=== PATIENT | female | born 1930 | race African-American/Black ===

== ENCOUNTER 2020-04-05 18:04 | Inpatient (IN) | payer OTHER ==
[~2020-04-05] VITALS: Ht 160 cm; Wt 51.9 kg
--- NOTE | ~2020-04-05 | HC ---
[facility] [place] [address] [place] [address] CONSULTATION Name: BON CAMACHO Room #: 218-P [facility] IN M.R.#: [id number] Admission: 04/05/20 Attend Phys: Tasneem Fuentes MD Discharge: Date of : [birth year] Report #: [id number] THIS REPORT FOR: cc: Clarisa Marin MD, Paula V. MD Al-Shazia,Nette Torres MD ~ REASON FOR CONSULTATION: Hyponatremia. REASON FOR PRESENTATION: Sent from her facility for a concerning metastatic lesions on her MRI. HISTORY OF PRESENT ILLNESS: An 89-year-old who presented from her primary care physician after an MRI was done on her. She reported to her physicians that she has been having lower extremity weakness and numbness. MRI was very concerning. The patient was sent for further evaluation where she was found to have hyponatremia with a sodium of 114. It does look like that the patient has history of hypertension and is maintained on hydrochlorothiazide. She also reports of poor oral intake. The patient was initiated on IV fluid with some improvement on her sodium values. Sodium is up to 123 as of this morning. She did not have any symptoms other than mild weakness. She also reported some diarrhea. PAST MEDICAL HISTORY: Hypertension. MEDICATIONS: 1. Lisinopril. 2. Hydrochlorothiazide/triamterene. FAMILY HISTORY: Hypertension. ALLERGIES: None. REVIEW OF SYSTEMS: GENERAL: No fever or chills, but significant for weakness. CARDIOVASCULAR: No chest pain or palpitation. PULMONARY: No cough or hemoptysis. GASTROINTESTINAL: No nausea or vomiting, but significant for diarrhea and poor appetite. NEUROLOGICAL: As per the history of present illness. PHYSICAL EXAMINATION: GENERAL: She is awake, alert, oriented. Blood pressure is 126/65, temperature 36.4, pulse rate 72, respiratory rate 16. HEAD AND NECK: No jugular venous distention. CHEST: No crackles. CARDIOVASCULAR: No rub detected. [facility] [address] [place] [address] CONSULTATION Name: BON CAMACHO Zulema Room #: 218-P [facility] IN [facility]#: [id number] Admission: 04/05/20 Attend Phys: Tasneem Fuentes MD Discharge: Date of : [birth year] Report #: [id number] ABDOMEN: Soft, nontender. LOWER EXTREMITIES: There is no edema. LABORATORY DATA: From today, sodium is 123, potassium is 3.7, chloride is 89, BUN is 12, creatinine 0.7. ASSESSMENT AND PLAN: 1. Hyponatremia due to thiazide diuretics and poor oral intake of solutes. 2. Sodium is up to 123. 3. Metastatic workup has been initiated. 4. Initiate on salt tablet. 5. Fluid restriction. 6. No more thiazide diuretics. 7. No NSAIDs. 8. The patient's sodium should rectify in the next 24 hours. No further renal recommendation. By: 0700 0725 Nette Clay MD /nt
[2020-04-05 18:07] VITALS: BP 126/69
[2020-04-05] MEDS ORDERED: ZESTRIL40 MG PO (18:46)
[2020-04-05] MEDS ORDERED: HYDROCODON-ACE1 EAC7 PO (18:47)
[2020-04-05] MEDS ORDERED: TRIAMTERENE/HCT1 CA1 PO (18:47)
[2020-04-05] MEDS ORDERED: TIZANIDINE HCL4 M1 PO (18:48)
[2020-04-05] MEDS ORDERED: TIMOLOL MALEATE5 M2 OPHTHALMIC (18:49)
[2020-04-05] MEDS ORDERED: XALATAN2.5 ML OPHTHALMIC (18:50)
[2020-04-05 19:11] LABS: EOSINOPHILS 0.1 % (0.0-3.0)
[2020-04-05 19:12] LABS: ABSOLUTE NEUTROPHILS 12.7 thou/uL (1.4-8.2); BASOPHILS 0.4 % (0.0-2.0); HEMATOCRIT 44.7 % (37.0-47.0); HEMOGLOBIN 15.2 gm/dL (12.0-15.0); LYMPHOCYTES 7.5 % (24.0-44.0); MCH 32.6 pg (26.0-34.0); MCV 95.7 fL (80.0-100.0); MONOCYTES 8.7 % (1.0-8.0); PLATELET COUNT 519 thou/uL (150-400); POLYS 83.3 % (36.0-66.0); RBC 4.67 mil/uL (4.20-5.00); RDW 13.6 % (10.5-14.5); WBC 15.3 thou/uL (4.0-11.0)
[2020-04-05 19:24] LABS: ALBUMIN 3.6 g/dL (3.4-5.0); CALCIUM 9.5 mg/dL (8.5-10.1); POTASSIUM 4.4 mmol/L (3.5-5.1); TOTAL BILIRUBIN 0.8 mg/dL (0.2-1.0); TOTAL PROTEIN 7.6 g/dL (6.4-8.2)
[2020-04-05 20:07] LABS: URINE BILIRUBIN NEGATIVE (Negative); URINE BLOOD NEGATIVE (Negative); URINE CLARITY CLEAR; URINE COLOR YELLOW; URINE GLUCOSE-RANDOM* NEGATIVE (Negative); URINE KETONES NEGATIVE (Negative); URINE LEUKOCYTES-REFLEX NEGATIVE (Negative); URINE NITRITE-REFLEX NEGATIVE (Negative); URINE PROTEIN (DIPSTICK) NEGATIVE (Negative); URINE UROBILINOGEN 0.2 E.U./dl (0.2-1.0)
[2020-04-06] VITALS (7 sets, daily range): BP systolic 101–137; BP diastolic 62–71
[2020-04-06 01:30] LABS: CALCIUM 9.2 mg/dL (8.5-10.1); CREATININE 0.8 mg/dL (0.6-1.0); POTASSIUM 3.8 mmol/L (3.5-5.1)
[2020-04-06 05:12] LABS: HEMATOCRIT 41.6 % (37.0-47.0); HEMOGLOBIN 13.9 gm/dL (12.0-15.0); MCHC 33.3 g/dL (28.0-37.0); RBC 4.34 mil/uL (4.20-5.00); RDW 13.4 % (10.5-14.5); WBC 14.7 thou/uL (4.0-11.0)
[2020-04-06 05:22] LABS: CALCIUM 9.4 mg/dL (8.5-10.1); CREATININE 0.8 mg/dL (0.6-1.0); POTASSIUM 3.9 mmol/L (3.5-5.1)
--- NOTE | 2020-04-06 07:20 | EKG ---
[address] [place] [address] ELECTROCARDIOGRAM REPORT Name: BON CAMACHO Room #: 170-7 ADM IN M.R.#: [id number] Admission: 04/05/20 Attend Phys: Jossue Gonzalez MD Discharge: Date of : [birth year] Report #: [id number] [facility] ED Test Date: 2020-04-05 Test Time: 18:39:06 Pat Name: BON CAMACHO Department: Room: 170 Gender: F Booking Agent: cu : [id number] Requested By: Skip Schroeder Order Number: [id number] MD: Carl Abraham Measurements Intervals Hobbs Rate: 69 P: -7 OK: 162 QRS: -19 QRSD: 112 T: 0 QT: 374 QTc: 401 Interpretive Statements Sinus rhythm Probable left ventricular hypertrophy Inferior infarct, old Anterior Q waves, possibly due to LVH Compared to ECG 09/29/1990 13:18:00 Myocardial infarct finding now present Left ventricular hypertrophy now present Q waves now present Sinus bradycardia no longer present Electronically Signed On 04-06-2020 7:19:52 TELEVISION CABINET FINISHER by Carl Abraham [email or web address] <ELECTRONICALLY SIGNED> By: Carl Abraham MD, FAC 04/06/20 0719 [id number] Carl Abraham MD, [facility] /EPI
--- NOTE | 2020-04-06 15:30 | NUR ---
RECEIVED PT FROM ER AT 1420. PT STATES SHE HAS SEVERE PAIN WITH MOVEMENT. ASSESSMENT PERFORMED. PT STATES HER GOAL PAIN LEVEL IS 2 AND AFTER MOVEMENT, PT DENIES PAIN. PT A&OX4. PTS DAUGHTER AT BEDSIDE. VSS. WILL CONTINUE TO MONITOR.
[2020-04-07] VITALS: BP 123/73
[2020-04-07 05:11] LABS: ALBUMIN 3.1 g/dL (3.4-5.0); CALCIUM 9.2 mg/dL (8.5-10.1); CREATININE 0.7 mg/dL (0.6-1.0); PHOSPHORUS 2.6 mg/dL (2.5-4.9); POTASSIUM 3.7 mmol/L (3.5-5.1)
[2020-04-07 06:08] VITALS: BP 126/65
--- NOTE | 2020-04-07 06:37 | NUR ---
SLEPT MOST OF SHIFT PAST 2400. REMAINS ORIENTED TO SELF AND TIME. REPOSITIONED EVERY 2 HOURS FOR COMFORT AND SKIN CARES. NOTED WOUND TO RIGHT AND LEFT BACK, AND RIGHT AND LEFT BUTTOCK. NOT PROGRESSING TOWARDS DISCHARGE GOALS. COMPLAINTS OF PAIN WITH MOVEMENT BUT FALLS TO SLEEP WHEN DONE POSITIONING. REORIENT NEEDED. PAIN MEDICATIONS GIVEN NEEDED. WORKING ON GOALS AND PLAN OF CARE FOR NOC. CONTINUE TO ASSES CLOSELY
[2020-04-07 07:10] VITALS: BP 118/50
--- NOTE | 2020-04-07 07:24 | HC ---
[facility] [address] [place] [address] CONSULTATION Name: BON CAMACHO Room #: 218-P [facility] IN M.R.#: [id number] Admission: 04/05/20 Attend Phys: Tasneem Fuentes MD Discharge: Date of : [birth year] Report #: [id number] THIS REPORT FOR: cc: Clarisa Marin MD,Danis Colon MD, MD ~ PRIMARY CARE PHYSICIAN: Dr. Clarisa Marin REASON FOR CONSULTATION: Reported abnormal MRI of the spine, back pain, hyponatremia. HISTORY OF PRESENT ILLNESS: The patient is a very pleasant 89-year-old female who lives in [facility] who has got about a 2-3 week history of back pain, may be 1-week history of left leg weakness and numbness and pain radiating down her leg. The patient denies headache, vision troubles, swallowing difficulties, mouth sores, nausea, vomiting. Does report some watery stool, almost diarrhea, the feces is dark. She also reports of sweet tea. She has lost about 5-12 pounds. No fever. No ankle swelling. Does report numbness around the mid thigh on the left down to her distal toes. In the ER, her sodium was 114. Rest of labs are fairly unremarkable. PAST MEDICAL HISTORY: Notable for, I guess, hypertension and osteoarthritis. She is not the best historian. MEDICATIONS: At this time currently include half normal saline, Tylenol p.r.n., MiraLax p.r.n., Zofran p.r.n., and morphine p.r.n. PHYSICAL EXAMINATION: GENERAL: The patient appears her stated age. She is lying in the ER admit room. VITAL SIGNS: Height is reported as 5 feet 3 inches, 160 cm, weight 120 pounds or 54.4 kilograms. Blood pressure 100/56, O2 sat of 96%, respirations 15, pulse 69, afebrile at 98. MOOD: She is pleasant and alert, conversant. NEUROLOGIC: Face is symmetric. Speech and thought pattern fairly normal, though slightly slow, has decreased sensation or awareness on her left leg from about the thigh down. She could push down fairly well with her toes. Defer remainder neuro exam to others. LYMPHATICS: No enlarged lymph nodes in the supraclavicular or cervical region. ABDOMEN: Fairly scaphoid. No obvious masses. EXTREMITIES: Without clubbing, cyanosis or edema. LABORATORY DATA: Here has sodium currently 121, BUN 20, creatinine 0.9, alkaline phosphatase 129. Total protein 7.6, albumin 3.6. LDH slightly [address] [address] CONSULTATION Name: JANICEBON Poole Room #: 218-P ADM IN M.R.#: [id number] Admission: 04/05/20 Attend Phys: Tasneem Fuentes MD Discharge: Date of : [birth year] Report #: [id number] elevated at 266. Transaminases normal. I ordered serum protein electrophoresis pending. White count 14.7; hemoglobin 13.9; platelets 494, down from 519. Differential mostly normal. TSH 0.59. Coronavirus negative. Vitamin D pending. UA fairly unremarkable. ASSESSMENT AND PLAN: 1. Reportedly, abnormal MRI, worse from metastatic disease. We will arrange for CAT scan chest, abdomen and pelvis to look for possible primary. We will also check serum protein electrophoresis looking for paraprotein. 2. Leg weakness and pain. Neurosurgery to see the patient also receiving p.r.n. pain meds. 3. Hypertension, meds per others. 4. Hyponatremia. Renal to see ____ receiving cautious rehydration. Sodium has improved. We will follow with you. <ELECTRONICALLY SIGNED> By: Danis Will MD 04/07/20 0724 [id number] [id number] Danis Will MD /nt
[2020-04-07 09:08] LABS: INR 1.1; PROTIME 10.6 Seconds (9.3-11.4)
--- NOTE | 2020-04-07 10:37 | NUR ---
WOUND CARE CONSULT; ASSESSED BUTTOCKS AREA AND L MID BACK WOUND W/ LOIS POWER LINE LINEMAN NURSE, PT ALERT, COOPERATIVE BUT C/O PAIN WHEN TURNING, BILAT BUTTOCKS AREA EXCORIATED, CAUSE PROBABLE SHEARING, MARIA C, NO S/S INFECTION, AREA ~4CM X3CM, WOUND UPPER L MID BACK, 1CM X1CM X .2CM, PINK, NO S/S INFECTION, APPEARS SHEARING INJURY RECOMMENDATIONS; ZGUARD TO BUTTOCKS AREA BID AND PRN, BORDER FOAM TO L MID BACK WOUND CHANGE 3X WEEK, M/W/F AND PRN, LOW AIR PUMP TO BED LAND LEASES AND RENTALS MANAGER AWARE
[2020-04-07 17:00] VITALS: BP 120/78
[2020-04-07 20:28] VITALS: BP 130/83
--- NOTE | 2020-04-08 05:06 | NUR ---
PT IS ALERT AND ORIENTED X2. WITH SOME CONFUSION AT TIMES. REORIENTATION GIVEN TO PT NEEDED. ON ROOM AIR LUNGS ARE CLEAR .PT HAS A OWENS CATH PRESENT. ABDOMEN IS FLAT BOWEL SOUNDS ACTIVE. WILL ADRESS WOUNDS WITH Z GAURD INDICATED. WANTED THE BEDPAN BUT NO BOWEL MOVEMENT NOTED. WILL CONTINUE TO MONITOR AND ASSESS PER NURSING.
[2020-04-08 05:19] VITALS: BP 113/75
--- NOTE | 2020-04-08 09:56 | NUR ---
Met with patient who admits with back pain. Patient resides at home with son. All needs on one level. Patient reports prior to her pain she was independent. She reports pain in left side. she went to PCP Dr Slade/[facility]. subsequently admitted from PCP office. Patient reports pain so terrible she could not turn in her bed, her son helped her. Dtr obtained wc, walker for patient. Patient has 6 supportive children. She reports dtr her designated visitor. Patient with no hx of skilled/rehab or HH. casemgt following for dc needs.
[2020-04-08 11:20] VITALS: BP 107/72
--- NOTE | 2020-04-08 14:41 | NUR ---
PT IS CONFUSED AT BASELINE. DAUGHTER AT BEDSIDE. BBB ON [place] KNITTER. MRI TODAY. POSSIBLE CT TODAY/TOMORROW. WOUNDS WERE VISUALIZED AND CLEANED/DRESSED ACCORDING TO WOUND CARE ORDERS. PT AFEBRILE, OLIGUREA(PROVIDER AWARE), POOR APPETITE, NO BM. PT AND FAMILY HAVE BEEN UPDATED AND EDUCATED ON PT CONDITION AND POC. PT SLOWLY PROGRESSING TOWARDS POC.
--- NOTE | 2020-04-08 15:45 | NUR ---
REHAB CONSULT COMPLETED BY DOREEN SNEED (PT SKILLED WITH DR. SUH). NO THERAPY NOTES IN OF THIS TIME. WILL FOLLOW AND REVIEW THERAPY NOTES TO DETERMINE PATIENT'S REHAB NEEDS WHEN THEY ARE AVAILABLE. THANK YOU FOR THIS REFERRAL.
[2020-04-08 17:00] VITALS: BP 128/58
[2020-04-08 20:30] VITALS: BP 125/86
[2020-04-08 20:33] LABS: M-SPIKE Not Observed g/dL (Not Observed)
[2020-04-09 04:45] VITALS: BP 122/83
[2020-04-09 07:43] VITALS: BP 139/86
[2020-04-09 11:56] VITALS: BP 109/73
[2020-04-09 15:38] VITALS: BP 144/95
--- NOTE | 2020-04-09 16:36 | NUR ---
5N/PT/OT evals in progress today but limited due to pt's poor pain control. Therapy will reattempt to work with the pt tomorrow to make recommendations for HH/SNF/Rehab. 5N will reassess on Sunday. Bone bx results pending. Nursing notes new orders for pain patch and oral meds to try and get better pain control as this will help determine dc recommendations. Will follow.
--- NOTE | 2020-04-09 17:44 | NUR ---
ASSUMED CARE SHIFT CHANGE. ASSESSMENTS CHARTED.MEDS GIVEN. VSS. C/O PAIN MANAGED WITH IV AND PO PAIN MEDS. O2 SATS WNL ROOM AIR. PT UP WITH PHYS THERAPY TOLERATING FAIR. STILL AWAITING BIOPSY RESULTS. DAUGHTER VISITED WITH PT THIS SHIFT. PT CURRENTLY RESTING COMFORTABLY. DENIES NEEDS. CONTINUING POC. WILL PASS ON REPORT TO VASU MACE.
[2020-04-09 20:15] VITALS: BP 126/74; BP 150/67
--- NOTE | 2020-04-09 20:36 | NUR ---
DTR CARITO CALLED. SHE WANTS PATIENT TO HAVE HOSPICE/PALLIATIVE CARE.WILL COMMUNICATE THIS INTENT.
--- NOTE | 2020-04-09 22:17 | NUR ---
ASSESSMENT COMPLETED.PT IS ALERT AND ORIENTED. A LITTLE FORGETFUL. PAIN TO BACK AND LEFT HIP. REPOSITIING GENTLY PROVIDED. OPEN AREA TO BOTTOM, Z GUARD APPLIED. PT HAS A OWENS TO D/D WITH LIGHT YELLOW U/O NOTED.PT HAS SEVERAL SNACKS AND TRIES TO EAT THEM-REPORTS POOR APPETITE SR ON TELEMETRY SHE IS AFEBRILE. APPEARS TO BE IN NO MUCH DISTRESS AT THIS TIME. WILL CONTINUE WITH POC TILL EOS.
[2020-04-10 04:45] VITALS: BP 117/74
[2020-04-10 07:53] VITALS: BP 114/70
[2020-04-10 11:13] VITALS: BP 152/90
--- NOTE | 2020-04-10 12:33 | NUR ---
PT DISCHARGE PLAN HAS CHANGED PT'S DTR (CARITO) SPOKE WITH PHYSICIAN AND NURSE THAT SHE WOULD LIKE TO TAKE HER MOTHER HOME WITH HOSPICE. I SPOKE WITH CARITO AND SHE JUST WANTS THE BEST HOSPICE FOR HER MOTHER. I FAXED RFERRAL TO HOSPICE SPOKE WITH KIRSTEN AND SHE IS GOING TO HAVE RN CALL PT'S DTR AND EVAL PT FOR DC TO HOME TOMORROW SO THEY CAN GET HOSPITAL BED IN PLACE AT HOME. SPOKE WITH DTR AND SHE IS AGREEABLE WITH DC PLAN. AMB FORM FAXED TO UNIT. WILL ARRANGE TRANSPORT TOMORROW ONCE DC ORDERS ARE FINALIZED.
[2020-04-10 12:38] VITALS: BP 152/90
[2020-04-10 13:42] LABS: URINE BILIRUBIN NEGATIVE (Negative); URINE BLOOD 1+ (Negative); URINE CLARITY CLEAR; URINE COLOR YELLOW; URINE GLUCOSE-RANDOM* NEGATIVE (Negative); URINE KETONES TRACE (Negative); URINE LEUKOCYTES 3+ (Negative); URINE NITRITE POSITIVE (Negative); URINE PROTEIN (DIPSTICK) TRACE (Negative); URINE UROBILINOGEN 0.2 E.U./dl (0.2-1.0)
[2020-04-10 13:53] LABS: WBC CLUMPS Moderate (None Seen)
[2020-04-10 13:54] LABS: CASTS None Seen /LPF (None Seen); SQUAMOUS 0-3 Few /LPF (0-3)
[2020-04-10 13:55] LABS: BACTERIA >30 Many /HPF (None Seen); URINE RBC 0-2 Rare /HPF (0-2); URINE WBC >25 Many /HPF (0-5)
[2020-04-10 13:56] LABS: CRYSTALS None Seen /LPF (None Seen); YEAST Present (None Seen)
[2020-04-10 15:28] VITALS: BP 136/70
--- NOTE | 2020-04-10 15:37 | NUR ---
PT ALERT AND ORIENTED WITH FORGETFULNESS. VSS. PRN PAIN MED GIVEN WITH PARTIAL RELIEF. NO CONCERNS AT THIS TIME.
[2020-04-10 19:35] VITALS: BP 145/85
--- NOTE | 2020-04-11 02:34 | NUR ---
SLEEPING WITHOUT PRESENT COMPLAINTS. PATIENT TURNING SELF IN BED. TYLENOL SHCEDULED GIVEN PER ORDERS. REMAINS ORIENTED X4 BUT FORGETFUL AT TIMES. WORKING ON GOALS AND PLAN OF CARE FOR NOC. PROGRESSING TOWARDS DISCHARGE WITH HOSPICE PLANS FOR AM. CONTINUE TO ASSES CLOSELY.
[2020-04-11 04:45] VITALS: BP 137/79
[2020-04-11 07:59] VITALS: BP 134/79
[2020-04-11] MEDS ORDERED: MSL20MG/ML SUBLING (10:08)
[2020-04-11] MEDS ORDERED: TRAMADOL 50 MG50 MG PO (10:27)
[2020-04-11] MEDS ORDERED: HALOPERIDOL2 MG/1 ML PO (10:27)
[2020-04-11] MEDS ORDERED: SODIUM CHLORIDE1 GM PO (10:27)
[2020-04-11] MEDS ORDERED: KEFLEX500 M1 PO (10:27)
[2020-04-11] MEDS ORDERED: LIDOPATCH1 EACH TRANSDERM (10:27)
[2020-04-11] MEDS ORDERED: SENOKOT8.6 MG PO (10:27)
[2020-04-11] MEDS ORDERED: LORAZEPAM I2 MG/1 ML PO (10:27)
[2020-04-11] MEDS ORDERED: DURAGESIC1 EACH TRANSDERM (11:02)
[2020-04-11 11:51] VITALS: BP 130/70
--- NOTE | 2020-04-11 15:23 | NUR ---
ASSESSMENT CHARTED. PT ALERT AND ORIENTED WITH FORGETFULNESS. PRN PAIN MED GIVEN WITH PARTIAL RELIEF. ORDERS GIVEN TO DISCHARGE PT TO HOME WITH HOSPICE. DISCHARGE ORDERS FAXED TO HOSPICE. DAUGHTER NOTIFIED.
== END 2020-04-11 15:26 | disposition hospice, home (50) | DRG 542 ==
LOC: ER 18:04 → EROBS 20:13 → 2N 20:13
PROVIDERS: Emergency Medicine; Hospitalist; Internal Medicine; Internal Medicine Hematology & Oncology; Nurse Practitioner Family; ADMIT Hospitalist; ATTEND Hospitalist
PROC: 079T3ZX Drainage of Bone Marrow, Percutaneous Approach, Diagnostic (ICD-10-PCS; principal; 2020-04-07)
DX: C79.51 Secondary malignant neoplasm of bone (principal); E43 Unspecified severe protein-calorie malnutrition; J12.9 Viral pneumonia, unspecified; G92 Toxic encephalopathy; E87.1 Hypo-osmolality and hyponatremia; J90 Pleural effusion, not elsewhere classified; E86.1 Hypovolemia; I10 Essential (primary) hypertension; M54.9 Dorsalgia, unspecified; M19.90 Unspecified osteoarthritis, unspecified site; T50.2X5A Adverse effect of carbonic-anhydrase inhibitors, benzothiadiazides and other diuretics, initial encounter; Z66 Do not resuscitate; Z51.5 Encounter for palliative care; Z20.822 Contact with and (suspected) exposure to COVID-19; Y92.89 Other specified places as the place of occurrence of the external cause; Z68.20 Body mass index [BMI] 20.0-20.9, adult
CPT/HCPCS: 10081